=== PATIENT | male | born 1955 | race Caucasian/White ===

== ENCOUNTER 2016-10-01 14:02 | Emergency (ER) | payer OTHER ==
--- NOTE | 2016-10-01 17:00 | DIAGNOSTIC IMAGING REPORT ---
PROCEDURE: XR CHEST 2 VIEW INDICATION: CHEST PAIN TECHNIQUE: PA and lateral view. COMPARISON: None. FINDINGS: Mild bibasilar linear atelectasis versus scarring. Heart size, mediastinum and pulmonary vessels are normal. Tortuous aorta. Bony thorax is unremarkable. IMPRESSION: 1. Mild bibasilar linear atelectasis versus scarring
--- NOTE | 2016-10-01 17:23 | ED ORDER SUMMARY ---
..... Patient: MECHE MOORE OrderSheet [facility] VisitID: [id number] [place] [address] 60y, M Registration Date/Time: 10/01/2016 ORDER SHEET Weight: 93.8 kg (stated) Allergies: Penicillin, morphine GENERAL ORDERS: POC Glucose (15:15 10/01/2016 EKoroleva P.A.-C) (15:25 JSimbeck R.N.) Chest 2V Urgent (15:56 10/01/2016 EKoroleva P.A.-C) (Ack 16:09 Tayler) (16:30 MCampbell) Cardiac Panel Stat (15:56 10/01/2016 EKoroleva P.A.-C) (16:04 TLewis R.N.) PTT Urgent (15:56 10/01/2016 EKoroleva P.A.-C) (16:04 TLewis R.N.) PT with INR Urgent (15:56 10/01/2016 EKoroleva P.A.-C) (16:04 TLewis R.N.) EKG - ER Stat (15:56 10/01/2016 EKoroleva P.A.-C) (Ack 16:09 Tayler) (16:33 RMarsden R.N.) MEDICATION ORDERS: Regular Insulin Subcut 6 units (HIGH ALERT MEDICATION, NOW) (16:42 10/01/2016 EKoroleva P.A.-C) (17:17 JSimbeck R.N.) IV FLUIDS: IV Saline Lock (15:56 10/01/2016 EKoroleva P.A.-C) (Hold 16:02 JSimbeck R.N.) (16:04 TLewis R.N.) ORDER SHEET NOTES: [Electronically signed by Alfreda ChappellAFrancois-C (17:31 10/01/2016)] [Electronically signed by Tevni Serrano R.N. (17:36 10/01/2016)] [Electronically locked/signed by Tevin Serrano R.N. (17:36 10/01/2016)]
--- NOTE | 2016-10-01 17:23 | ED CLINICAL REPORT ---
Clinical Report - Physicians/Mid Levels [facility] [address], [place] [address] 10/01/2016 14:08 [id number] Time Seen: 15:05 Oct 01 2016. Arrived- By private vehicle. Historian- patient. HISTORY OF PRESENT ILLNESS Chief Complaint: no complaints, sent after VS with high BP at clinic. Is still present. No loss of appetite, weight loss, headache or visual disturbance. (patient has no complaints. Reports he has been taking his medications regularly. Long standing h/o htn. Reports h/o dm, reports did not take his insulin this am, has not checked his glucose. Does not have a glucometer.). REVIEW OF SYSTEMS No fever, sore throat, sinus drainage, cough or difficulty breathing. No nausea, diarrhea, chills or calf pain. All systems otherwise negative, except as recorded above. PAST HISTORY Problems: Adrenal and Pitituarity tumors. Depression. Hypertension. Diabetes Mellitus. Additional Surgeries: Adenoidectomy. Hernia Repair. Tonsillectomy. Medications: HumaLOG Subcutaneous. Lantus Subcutaneous. PROzac Oral. Kidney med. B/p med. Allergies: morphine. Penicillin. SOCIAL HISTORY Current every day light tobacco smoker. No alcohol use or drug use. LABS, X-RAYS, AND EKG EKG: EKG time: (1619). No acute process. No acute ischemia. Rate: 76. Normal P waves. Normal QT. non specific t abn, v1,i, avl, no acute changes, as reviwed with DR. Pabon. The study has been interpreted contemporaneously. The study has been independently viewed by me. The EKG appears to be a good tracing. Chest X-ray: (IMPRESSION: 1. Poor inspiration 2. Small right pleural effusion versus pleural thickening. Electronically Final signed by:Simon Torres MD 10/01/2016 1:49:57 PM). Laboratory Tests: CBC w Diff: (MIKAEL: 10/01/2016 16:05) ( MsgRcvd 10/01/2016 16:20) Final results Test Result Flag Units (Reference) WHITE BLOOD COUNT 5.8 K/uL (4.5-11.5) RED BLOOD COUNT 5.29 M/uL (4.50-5.90) HEMOGLOBIN 15.8 gm/dL (13.5-17.5) HEMATOCRIT 45.8 % (41.0-53.0) MEAN CELL VOLUME 87 fL (80-100) MEAN CORPUSCULAR HGB 30 pg (26-34) MEAN CORPUSCULAR HGB CONC 35 g/dL (31-37) RED CELL DISTRIBUTION WIDTH 14.1 % (11.6-14.8) PLATELET COUNT 212 K/uL (150-400) NEUTROPHIL % 61.3 % (50-75) LYMPH % 24.5 L % (25-40) MONO % 10.5 % (3-14) EOSINOPHIL % 3.0 % (0-4) BASOPHIL % 0.7 % (0-2) PT with INR: (MIKAEL: 10/01/2016 16:05) ( [facility] 16[place]26) Final results Test Result Flag Units (Reference) INR 0.9 (0.8-1.2) Low Intensity Therapy: INR 1.5-2.0 PT range 18.5-23.1Mod.Intensity Therapy: INR 2.0-3.0 PT range 23.1-31.5High Intensity Therapy: INR 2.5-3.5 PT range 27.4-35.5High Intensity Therapy 2: INR 3.0-4.0 PT range 31.5-39.3 APTT 29 SECONDS (24-34) CHEM 13 PANEL: (MIKAEL: 10/01/2016 16:05) ( MngRcvd 10/01/2016 16:40) IP Test Result Flag Units (Reference) SODIUM 136 mmol/L (136-145) POTASSIUM 4.7 mmol/L (3.5-5.1) CHLORIDE 100 mmol/L (98-107) CARBON DIOXIDE 24 mmol/L (21-32) TOTAL PROTEIN 7.2 g/dL (6.4-8.2) ALBUMIN 3.6 g/dL (3.3-5.0) CPK 69 U/L (24-260) TROPONIN I <0.05 L ng/mL (0.00-1.5) TROPONIN REFERENCE RANGE:<0.1 NEGATIVE0.1-1.5 INDETERMINANT>1.5 POSITIVE . PROGRESS AND PROCEDURES Course of Care: Given 6 units sc insulin rgular. NO distress. NO sx in the ER. Neg work up including cxr, trop, ekg. Pt stable. To f/u outpatient. He has no complaints. I did attempt to discuss with [facility], however he was only seen by nurse, he was sent over without a phone call or any records, he is new to us, the soap workup ensued, however no obvious signs of hypertensive urgency. ASX, no signs of end organ damage. 10/01/2016 16:55 BP: 146/92. HR: 75. RR: 16. O2 saturation: 95%. Pain level now: 0/10. 10/01/2016 16:25 BP: 158/92. HR: 75. RR: 16. O2 saturation: 95%. Pain level now: 0/10. Patient is stable. Physical exam findings are improved. Symptoms better. Patient/family counseled. Differential Diagnosis: I considered muscle strain, pleurisy, myocardial infarction, intermediate coronary syndrome, aortic dissection, pulmonary embolism, pneumonia and gastroesophageal reflux disease as a possible cause of chest pain in this patient. This is a partial list of diagnoses considered. Disposition: Discharged. CLINICAL IMPRESSION Poorly controlled type 2 diabetes. Uncontrolled hypertension. Uncontrolled hypertension. INSTRUCTIONS Prescription Medications: Glucometer Machine Dispense one. (Electronically signed by Alfreda Chappell P.A.-C 10/01/2016 17:31)
--- NOTE | 2016-10-01 17:23 | ED ORDER SUMMARY ---
..... Patient: MECHE MOORE OrderSheet [facility] VisitID: [id number] [place] [address] 60y, M Registration Date/Time: 10/01/2016 ORDER SHEET Weight: 93.8 kg (stated) Allergies: Penicillin, morphine GENERAL ORDERS: POC Glucose (15:15 10/01/2016 EKoroleva P.A.-C) (15:25 JSimbeck R.N.) Chest 2V Urgent (15:56 10/01/2016 EKoroleva P.A.-C) (Ack 16:09 Tayler) (16:30 MCampbell) Cardiac Panel Stat (15:56 10/01/2016 EKoroleva P.A.-C) (16:04 TLewis R.N.) PTT Urgent (15:56 10/01/2016 EKoroleva P.A.-C) (16:04 TLewis R.N.) PT with INR Urgent (15:56 10/01/2016 EKoroleva P.A.-C) (16:04 TLewis R.N.) EKG - ER Stat (15:56 10/01/2016 EKoroleva P.A.-C) (Ack 16:09 Tayler) (16:33 RMarsden R.N.) MEDICATION ORDERS: Regular Insulin Subcut 6 units (HIGH ALERT MEDICATION, NOW) (16:42 10/01/2016 EKoroleva P.A.-C) (17:17 JSimbeck R.N.) IV FLUIDS: IV Saline Lock (15:56 10/01/2016 EKoroleva P.A.-C) (Hold 16:02 JSimbeck R.N.) (16:04 TLewis R.N.) ORDER SHEET NOTES: [Electronically signed by Alfreda ChappellAFrancois-C (17:31 10/01/2016)] [Electronically signed by Tevin Serrano R.N. (17:36 10/01/2016)] [Electronically locked/signed by Tevin Serrano R.N. (17:36 10/01/2016)]
--- NOTE | 2016-10-01 17:23 | ED CLINICAL REPORT ---
Clinical Report - Physicians/Mid Levels [facility] [address], [place] [address] 10/01/2016 14:08 [id number] Time Seen: 15:05 Oct 01 2016. Arrived- By private vehicle. Historian- patient. HISTORY OF PRESENT ILLNESS Chief Complaint: no complaints, sent after VS with high BP at clinic. Is still present. No loss of appetite, weight loss, headache or visual disturbance. (patient has no complaints. Reports he has been taking his medications regularly. Long standing h/o htn. Reports h/o dm, reports did not take his insulin this am, has not checked his glucose. Does not have a glucometer.). REVIEW OF SYSTEMS No fever, sore throat, sinus drainage, cough or difficulty breathing. No nausea, diarrhea, chills or calf pain. All systems otherwise negative, except as recorded above. PAST HISTORY Problems: Adrenal and Pitituarity tumors. Depression. Hypertension. Diabetes Mellitus. Additional Surgeries: Adenoidectomy. Hernia Repair. Tonsillectomy. Medications: HumaLOG Subcutaneous. Lantus Subcutaneous. PROzac Oral. Kidney med. B/p med. Allergies: morphine. Penicillin. SOCIAL HISTORY Current every day light tobacco smoker. No alcohol use or drug use. LABS, X-RAYS, AND EKG EKG: EKG time: (1619). No acute process. No acute ischemia. Rate: 76. Normal P waves. Normal QT. non specific t abn, v1,i, avl, no acute changes, as reviwed with DR. Pabon. The study has been interpreted contemporaneously. The study has been independently viewed by me. The EKG appears to be a good tracing. Chest X-ray: (IMPRESSION: 1. Poor inspiration 2. Small right pleural effusion versus pleural thickening. Electronically Final signed by:Simon Torres MD 10/01/2016 1:49:57 PM). Laboratory Tests: CBC w Diff: (MIKAEL: 10/01/2016 16:05) ( MsgRcvd 10/01/2016 16:20) Final results Test Result Flag Units (Reference) WHITE BLOOD COUNT 5.8 K/uL (4.5-11.5) RED BLOOD COUNT 5.29 M/uL (4.50-5.90) HEMOGLOBIN 15.8 gm/dL (13.5-17.5) HEMATOCRIT 45.8 % (41.0-53.0) MEAN CELL VOLUME 87 fL (80-100) MEAN CORPUSCULAR HGB 30 pg (26-34) MEAN CORPUSCULAR HGB CONC 35 g/dL (31-37) RED CELL DISTRIBUTION WIDTH 14.1 % (11.6-14.8) PLATELET COUNT 212 K/uL (150-400) NEUTROPHIL % 61.3 % (50-75) LYMPH % 24.5 L % (25-40) MONO % 10.5 % (3-14) EOSINOPHIL % 3.0 % (0-4) BASOPHIL % 0.7 % (0-2) PT with INR: (MIKAEL: 10/01/2016 16:05) ( [facility] 10/01/2016 16:26) Final results Test Result Flag Units (Reference) INR 0.9 (0.8-1.2) Low Intensity Therapy: INR 1.5-2.0 PT range 18.5-23.1Mod.Intensity Therapy: INR 2.0-3.0 PT range 23.1-31.5High Intensity Therapy: INR 2.5-3.5 PT range 27.4-35.5High Intensity Therapy 2: INR 3.0-4.0 PT range 31.5-39.3 APTT 29 SECONDS (24-34) CHEM 13 PANEL: (MIKAEL: 10/01/2016 16:05) ( NegRcvd 10/01/2016 16:40) IP Test Result Flag Units (Reference) SODIUM 136 mmol/L (136-145) POTASSIUM 4.7 mmol/L (3.5-5.1) CHLORIDE 100 mmol/L (98-107) CARBON DIOXIDE 24 mmol/L (21-32) TOTAL PROTEIN 7.2 g/dL (6.4-8.2) ALBUMIN 3.6 g/dL (3.3-5.0) CPK 69 U/L (24-260) TROPONIN I <0.05 L ng/mL (0.00-1.5) TROPONIN REFERENCE RANGE:<0.1 NEGATIVE0.1-1.5 INDETERMINANT>1.5 POSITIVE . PROGRESS AND PROCEDURES Course of Care: Given 6 units sc insulin rgular. NO distress. NO sx in the ER. Neg work up including cxr, trop, ekg. Pt stable. To f/u outpatient. He has no complaints. I did attempt to discuss with [facility], however he was only seen by nurse, he was sent over without a phone call or any records, he is new to us, the soap workup ensued, however no obvious signs of hypertensive urgency. ASX, no signs of end organ damage. 10/01/2016 16:55 BP: 146/92. HR: 75. RR: 16. O2 saturation: 95%. Pain level now: 0/10. 10/01/2016 16:25 BP: 158/92. HR: 75. RR: 16. O2 saturation: 95%. Pain level now: 0/10. Patient is stable. Physical exam findings are improved. Symptoms better. Patient/family counseled. Differential Diagnosis: I considered muscle strain, pleurisy, myocardial infarction, intermediate coronary syndrome, aortic dissection, pulmonary embolism, pneumonia and gastroesophageal reflux disease as a possible cause of chest pain in this patient. This is a partial list of diagnoses considered. Disposition: Discharged. CLINICAL IMPRESSION Poorly controlled type 2 diabetes. Uncontrolled hypertension. Uncontrolled hypertension. INSTRUCTIONS Prescription Medications: Glucometer Machine Dispense one. (Electronically signed by Alfreda Chappell P.A.-C 10/01/2016 17:31)
--- NOTE | 2016-10-01 17:23 | ED NURSING NOTES ---
Clinical Report - Nurses [facility] [address] [place] [address] 10/01/2016 14:08 [id number] Triage time 14:20. Chief Complaint: (hypertension). 14:28 10/01/16. --14:28 Erma Carter R.N. 14:22 10/01/16. BP: 153/103. HR: 84. RR: 16. O2 saturation: 98%. Temp: 97.8 F. Pain level now: 0/10. --14:28 Erma Carter R.N. Acuity: LEVEL 3. 14:35 10/01/16. TENNILLE COMA SCORE: Kinsley Coma Scale: 15- eyes open spontaneously (4); best verbal response- oriented x 4 (5); best motor response- obeys commands (6). --14:35 Tevin Serrano R.N. Weight: 93.8 kg stated. Height/Length: 70 inches Per Patient. BMI: 29.7. --14:33 Tevin Serrano R.N. Medications PROzac Oral. --14:31 Tevin Serrano R.N. Lantus Subcutaneous (50 units QAM 30 units QPM). --14:31 Tevin Serrano R.N. HumaLOG Subcutaneous 12 units, TID. --14:31 Tevin Serrano R.N. Aldactone Oral 25 mg, 2x a day. --16:03 Tevin Serrano R.N. Atorvastatin Calcium Oral (Tablet 40 mg), daily. --16:03 Tevin Serrano R.N. Vitamin D (Cholecalciferol) Oral 50,000 units, 2 x/week. --16:04 Tevin Serrano R.N. Metoprolol Tartrate Oral (Tablet 50 mg) 1 tablet, BID. --16:08 Tevin Serrano R.N. Nitroglycerin Translingual 0.4mg, as needed. --16:09 Tevin Serrano R.N. PriLOSEC Oral (Capsule Delayed Release 40 mg) 1 capsule, daily. --16:09 Tevin Serrano R.N. Valproic Acid Oral (Capsule 250 mg) 1 capsule, 3x a day. --16:10 Tevin Serrano R.N. The following entry was struck and corrected by Tevin Serrano R.N., 16:08 (10/01/16) Reason for correction - other(correction). <<STRICKEN ENTRY-- Lantus Subcutaneous. --14:31 Tevin Serrano R.N. --END STRIKE>> The following entry was struck and corrected by Tevin Serrano R.N., 16:05 (10/01/16) Reason for correction - other(correction). <<STRICKEN ENTRY-- HumaLOG Subcutaneous. --14:31 Tevin Serrano R.N. --END STRIKE>> The following entry was struck by Tevin Serrano R.N., 16:03 (10/01/16) Reason - other. <<STRICKEN ENTRY-- Kidney med. --14:31 Tevin Serrano R.N. --END STRIKE>> The following entry was struck by Tevin Serrano R.N., 16:03 (10/01/16) Reason - other. [facility]-- B/p med. --14:31 Tevin Serrano R.N. --END STRIKE>>. Allergies Penicillin. --14:31 Tevin Serrano R.N. morphine. --14:32 Tevin Serrano R.N. History Arrived by private vehicle. Historian: patient. Primary physician referred the patient for evaluation (Dr Thompson). ( Patient reports he had an appointment for a blood pressure check with his PCP. PCP sent patient here for checkup.). --14:28 Erma Carter R.N. Primary physician (Markus @ [facility]). SOCIAL HX: Light tobacco smoker (cigarette)- less than 1/2 a pack per day. No alcohol use or drug use. ABUSE ASSESSMENT: No report of abuse. --14:35 Tevin Serrano R.N. PROBLEMS: Adrenal and Pitituarity tumors. Depression. Hypertension. Diabetes Mellitus. --14:33 Tevin Serrano R.N. ADDITIONAL SURGERIES: Adenoidectomy. Hernia Repair. Tonsillectomy. --14:33 Tevin Serrano R.N. Interventions ID band on patient. To treatment room. --14:35 Tevin Serrano R.N. PHYSICAL ASSESSMENT 14:36 10/01/16. Ambulatory to room. ( Pt only came to the ER because his PCP clinic said he needed to be evaluated in the ER.). GENERAL / NEURO / PSYCH: Alert. Oriented X 4. Appears in no acute distress. HEENT: Pupils equal, round and reactive to light. No facial asymmetry noted. Mucous membranes are pink. RESPIRATORY: Respirations not labored. Chest nontender. Breath sounds within normal limits. CVS: Capillary refill less than 2 seconds. Pulses within normal limits. GI / : Abdomen soft and nontender and normal bowel sounds. SKIN: Skin is warm and dry. Abnormal skin turgor. --14:37 Tevin Serrano R.N. NURSING PROGRESS NOTES 15:23 10/01/16. BP: 168/100 (regular adult cuff) taken on the left arm, while sitting. HR: 77. RR: 20. O2 saturation: 97% on room air. Pain level now: 0/10. Additional comments: by pulse ox. --15:25 Tevin Serrano R.N. 15:24 10/01/16. Glucose: 343. PA notifed of critical value. --15:25 Tevin Serrano R.N. late entry -15:24. ( Pt states that his glucometer is broken so he does not check his BG. States his last A1c was 14.). --15:30 Tevin Serrano R.N. 16:04 10/01/2016 Site #1 started via IV in the right forearm with an 20g angiocath, with aseptic technique and good blood return; one attempt. Blood drawn. Labeled in the presence of the patient and sent to the lab. Saline lock flushed with 10 mL saline. --16:04 Alton Tristan R.N. EKG time: (16:19). EKG was performed by a tech and shown to the ED physician and PA. --16:23 Kinsey Suarez 17:17 10/01/2016 Regular Insulin Subcutaneous 6 unit given. Given in the left abdomen. Allergies verified and confirmed 5 rights. --17:17 Tevin Serrano R.N. 16:55 10/01/16. BP: 146/92 (regular adult cuff) taken on the left arm, while lying. HR: 75. RR: 16. O2 saturation: 95% on room air. Pain level now: 0/10. --17:21 Tevin Serrano R.N. 16:25 10/01/16. BP: 158/92 (regular adult cuff) taken on the left arm, while lying. HR: 75. RR: 16. O2 saturation: 95% on room air. Pain level now: 0/10. --17:22 Tevin Serrano R.N. 15:55 10/01/16. BP: 159/101 (regular adult cuff) taken on the left arm, while lying. HR: 77. RR: 16. O2 saturation: 98% on room air. Pain level now: 0/10. --17:23 Tevin Serrano R.N. 17:30 10/01/2016 Regular Insulin Subcutaneous Response: no adverse reaction. --17:36 Tevin Serrano R.N. DISPOSITION / DISCHARGE 17:25 10/01/2016 Site #1 removed upon discharge. Bandage applied. --17:34 Tevin Serrano R.N. 17:34 10/01/16. Departure time: 1730. Condition at departure: improved and stable. No learning barriers present. Discharge instructions provided and reviewed with the patient. Reviewed warnings. Reviewed medication(s). Treatments reviewed. Patient verbalized understanding. Written instructions provided in Bulgarian. The patient was discharged by the physician junior assistant manager. He was discharged home. He left the Emergency Department ambulatory and via private vehicle. Parent driving. --17:35 Tevin Serrano R.N. 17:25 10/01/16. BP: 147/96 (regular adult cuff) taken on the left arm, while sitting. HR: 75. RR: 20. O2 saturation: 98% on room air. Temp: 98.3 F (oral). Pain level now: 0/10. --17:35 Tevin Serrano R.N. Locked/Released at 10/01/2016 17:36 by Tevin Serrano R.N.
--- NOTE | 2016-10-01 17:23 | ED NURSING NOTES ---
Clinical Report - [facility] [address] [place] [address] 10/01/2016 14:08 [id number] TRI[facility] Triage time 14:20. Chief Complaint: (hypertension). 14:28 10/01/16. --14:28 Erma Carter R.N. 14:22 10/01/16. BP: 153/103. HR: 84. RR: 16. O2 saturation: 98%. Temp: 97.8 F. Pain level now: 0/10. --14:28 Erma Carter R.N. Acuity: LEVEL 3. 14:35 10/01/16. [place] COMA SCORE: [place] Coma Scale: 15- eyes open spontaneously (4); best verbal response- oriented x 4 (5); best motor response- obeys commands (6). --14:35 Tevin Serrano R.N. Weight: 93.8 kg stated. Height/Length: 70 inches Per Patient. BMI: 29.7. --14:33 Tevin Serrano R.N. Medications PROzac Oral. --14:31 Tevin Serrano R.N. Lantus Subcutaneous (50 units QAM 30 units QPM). --14:31 Tevin Serrano R.N. HumaLOG Subcutaneous 12 units, TID. --14:31 Tevin Srerano R.N. Aldactone Oral 25 mg, 2x a day. --16:03 Tevin Serrano R.N. Atorvastatin Calcium Oral (Tablet 40 mg), daily. --16:03 Tevin Serrano R.N. Vitamin D (Cholecalciferol) Oral 50,000 units, 2 x/week. --16:04 Tevin Serrano R.N. Metoprolol Tartrate Oral (Tablet 50 mg) 1 tablet, BID. --16:08 Tevin Serrano R.N. Nitroglycerin Translingual 0.4mg, as needed. --16:09 Tevin Serrano R.N. PriLOSEC Oral (Capsule Delayed Release 40 mg) 1 capsule, daily. --16:09 Tevin Serrano R.N. Valproic Acid Oral (Capsule 250 mg) 1 capsule, 3x a day. --16:10 Tevin Serrano R.N. The following entry was struck and corrected by Tevin Serrano R.N., 16:08 (10/01/16) Reason for correction - other(correction). <<STRICKEN ENTRY-- Lantus Subcutaneous. --14:31 Tevin Serrano R.N. --END STRIKE>> The following entry was struck and corrected by Tevin Serrano R.N., 16:05 (10/01/16) Reason for correction - other(correction). <<STRICKEN ENTRY-- HumaLOG Subcutaneous. --14:31 Tevin Serrano R.N. --END STRIKE>> The following entry was struck by Tevin Serrano R.N., 16:03 (10/01/16) Reason - other. <<STRICKEN ENTRY-- Kidney med. --14:31 Tevin Serrano R.N. --END STRIKE>> The following entry was struck by Tevin Serrano R.N., 16:03 (10/01/16) Reason - other. [facility]. --14:31 Tevin Serrano R.N. --END STRIKE>>. Allergies Penicillin. --14:31 Tevin Serrano R.N. morphine. --14:32 Tevin Serrano R.N. History Arrived by private vehicle. Historian: patient. Primary physician referred the patient for evaluation (Dr Thompson). ( Patient reports he had an appointment for a blood pressure check with his PCP. PCP sent patient here for checkup.). --14:28 Erma Carter R.N. Primary physician (Markus @ [facility]). SOCIAL HX: Light tobacco smoker (cigarette)- less than 1/2 a pack per day. No alcohol use or drug use. ABUSE ASSESSMENT: No report of abuse. --14:35 Tevin Serrano R.N. PROBLEMS: Adrenal and Pitituarity tumors. Depression. Hypertension. Diabetes Mellitus. --14:33 Tevin Serrano R.N. ADDITIONAL SURGERIES: Adenoidectomy. Hernia Repair. Tonsillectomy. --14:33 Tevin Serrano R.N. Interventions ID band on patient. To treatment room. --14:35 Tevin Serrano R.N. PHYSICAL ASSESSMENT 14:36 10/01/16. Ambulatory to room. ( Pt only came to the ER because his PCP clinic said he needed to be evaluated in the ER.). GENERAL / NEURO / PSYCH: Alert. Oriented X 4. Appears in no acute distress. HEENT: Pupils equal, round and reactive to light. No facial asymmetry noted. Mucous membranes are pink. RESPIRATORY: Respirations not labored. Chest nontender. Breath sounds within normal limits. CVS: Capillary refill less than 2 seconds. Pulses within normal limits. GI / : Abdomen soft and nontender and normal bowel sounds. SKIN: Skin is warm and dry. Abnormal skin turgor. --14:37 Tevin Serrano R.N. NURSING PROGRESS NOTES 15:23 10/01/16. BP: 168/100 (regular adult cuff) taken on the left arm, while sitting. HR: 77. RR: 20. O2 saturation: 97% on room air. Pain level now: 0/10. Additional comments: by pulse ox. --15:25 Tevin Serrano R.N. 15:24 10/01/16. Glucose: 343. PA notifed of critical value. --15:25 Tevin Serrano R.N. late entry -15:24. ( Pt states that his glucometer is broken so he does not check his BG. States his last A1c was 14.). --15:30 Tevin Serrano R.N. 16:04 10/01/2016 Site #1 started via IV in the right forearm with an 20g angiocath, with aseptic technique and good blood return; one attempt. Blood drawn. Labeled in the presence of the patient and sent to the lab. Saline lock flushed with 10 mL saline. --16:04 Alton Tristan R.N. EKG time: (16:19). EKG was performed by a tech and shown to the ED physician and PA. --16:23 Kinsey Suarez 17:17 10/01/2016 Regular Insulin Subcutaneous 6 unit given. Given in the left abdomen. Allergies verified and confirmed 5 rights. --17:17 Tevin Serrano R.N. 16:55 10/01/16. BP: 146/92 (regular adult cuff) taken on the left arm, while lying. HR: 75. RR: 16. O2 saturation: 95% on room air. Pain level now: 0/10. --17:21 Tevin Serraon R.N. 16:25 10/01/16. BP: 158/92 (regular adult cuff) taken on the left arm, while lying. HR: 75. RR: 16. O2 saturation: 95% on room air. Pain level now: 0/10. --17:22 Tevin Serrano R.N. 15:55 10/01/16. BP: 159/101 (regular adult cuff) taken on the left arm, while lying. HR: 77. RR: 16. O2 saturation: 98% on room air. Pain level now: 0/10. --17:23 Tevin Serrano R.N. 17:30 10/01/2016 Regular Insulin Subcutaneous Response: no adverse reaction. --17:36 Tevin Serrano R.N. DISPOSITION / DISCHARGE 17:25 10/01/2016 Site #1 removed upon discharge. Bandage applied. --17:34 Tevin Serrano R.N. 17:34 10/01/16. Departure time: 1730. Condition at departure: improved and stable. No learning barriers present. Discharge instructions provided and reviewed with the patient. Reviewed warnings. Reviewed medication(s). Treatments reviewed. Patient verbalized understanding. Written instructions provided in Urdu. The patient was discharged by the physician orthodontic assistant. He was discharged home. He left the Emergency Department ambulatory and via private vehicle. Parent driving. --17:35 Tevin Serrano R.N. 17:25 10/01/16. BP: 147/96 (regular adult cuff) taken on the left arm, while sitting. HR: 75. RR: 20. O2 saturation: 98% on room air. Temp: 98.3 F (oral). Pain level now: 0/10. --17:35 Tevin Serrano R.N. Locked/Released at 10/01/2016 17:36 by Tevin Serrano R.N.
--- NOTE | 2016-10-01 17:37 | ED DISCHARGE INSTRUCTIONS ---
Patient: MECHE MOORE General Instructions Located Within [facility] VisitID: [id number] [place] [address] 60y, M Registration Date/Time: 10/01/2016 Poorly controlled type 2 diabetes. Uncontrolled hypertension. Uncontrolled hypertension. INSTRUCTIONS Prescription Medications: Glucometer Machine Dispense one. ADDITIONAL INFORMATION High Blood Pressure --Established High Blood Pressure (Hypertension) is a chronic disease. The cause is unknown in most cases. It can usually be controlled with lifestyle changes and/or medicines. Symptoms of high blood pressure may include headache, dizziness, visual changes, chest pain and shortness of breath. Sometimes it causes no symptoms at all. However, even if there are no symptoms, untreated high blood pressure increases the risk of heart attack, also known as acute myocardial infarction, or AMI, and stroke. It is a serious health risk and should not be ignored. A normal blood pressure is 120/80 or less. The first (top) number is the "systolic" pressure. The second (bottom) number is the "diastolic" pressure. Hypertension exists when either the top number is 140 or higher, OR the bottom number is 90 or higher on repeated measurements. Home Care: All patients with high blood pressure should do the following to lower their pressure. If you are on medicines, then these methods may reduce or eliminate your need for medicines in the future. Begin a weight loss program if you are overweight. Reduce your salt intake. Avoid high salt foods (olives, pickles, smoked meats, salted potato chips, etc.). Do not add salt to your food at the table. Use only small amounts of salt when cooking. Begin an exercise program. Discuss with your doctor what type of exercise program would be best for you. It doesn't have to be difficult. Even brisk walking for 20 minutes three times a week is a good form of exercise. Avoid medicines which contain heart stimulants. This includes many cold and sinus decongestant pills and sprays as well as diet pills. Check the warnings about hypertension on the label. Stimulants such as amphetamine or cocaine could be lethal for someone with hypertension. Never take these. Limit your caffeine intake or switch to caffeine-free products. Stop smoking. If you are a long-time smoker, this can be hard. Enroll in a stop-smoking program to improve your chance of success. Learning how to handle stress better is an important part of any program to lower blood pressure. Learn about relaxation methods such as meditation, yoga or biofeedback. If medicines were prescribed, take them exactly as directed. Missing doses may cause your blood pressure get out of control. Consider buying an automatic blood pressure machine (available at most pharmacies). Use this to monitor your blood pressure at home and report the results to your doctor. Follow Up: Regular visits to your own physician for blood pressure checks and medicine adjustment is an important part of your care. Make a follow-up appointment as directed by our staff. Get Prompt Medical Attention if any of the following occur: Chest pain or shortness of breath Severe headache Throbbing or rushing sound in the ears Nosebleed Sudden severe abdominal pain Extreme drowsiness, confusion or fainting Dizziness or vertigo (dizziness with spinning sensation) Weakness of an arm or leg or one side of the face Difficulty with speech or vision High Blood Pressure --Established High Blood Pressure (Hypertension) is a chronic disease. The cause is unknown in most cases. It can usually be controlled with lifestyle changes and/or medicines. Symptoms of high blood pressure may include headache, dizziness, visual changes, chest pain and shortness of breath. Sometimes it causes no symptoms at all. However, even if there are no symptoms, untreated high blood pressure increases the risk of heart attack, also known as acute myocardial infarction, or AMI, and stroke. It is a serious health risk and should not be ignored. A normal blood pressure is 120/80 or less. The first (top) number is the "systolic" pressure. The second (bottom) number is the "diastolic" pressure. Hypertension exists when either the top number is 140 or higher, OR the bottom number is 90 or higher on repeated measurements. Home Care: All patients with high blood pressure should do the following to lower their pressure. If you are on medicines, then these methods may reduce or eliminate your need for medicines in the future. Begin a weight loss program if you are overweight. Reduce your salt intake. Avoid high salt foods (olives, pickles, smoked meats, salted potato chips, etc.). Do not add salt to your food at the table. Use only small amounts of salt when cooking. Begin an exercise program. Discuss with your doctor what type of exercise program would be best for you. It doesn't have to be difficult. Even brisk walking for 20 minutes three times a week is a good form of exercise. Avoid medicines which contain heart stimulants. This includes many cold and sinus decongestant pills and sprays as well as diet pills. Check the warnings about hypertension on the label. Stimulants such as amphetamine or cocaine could be lethal for someone with hypertension. Never take these. Limit your caffeine intake or switch to caffeine-free products. Stop smoking. If you are a long-time smoker, this can be hard. Enroll in a stop-smoking program to improve your chance of success. Learning how to handle stress better is an important part of any program to lower blood pressure. Learn about relaxation methods such as meditation, yoga or biofeedback. If medicines were prescribed, take them exactly as directed. Missing doses may cause your blood pressure get out of control. Consider buying an automatic blood pressure machine (available at most pharmacies). Use this to monitor your blood pressure at home and report the results to your doctor. Follow Up: Regular visits to your own physician for blood pressure checks and medicine adjustment is an important part of your care. Make a follow-up appointment as directed by our staff. Get Prompt Medical Attention if any of the following occur: Chest pain or shortness of breath Severe headache Throbbing or rushing sound in the ears Nosebleed Sudden severe abdominal pain Extreme drowsiness, confusion or fainting Dizziness or vertigo (dizziness with spinning sensation) Weakness of an arm or leg or one side of the face Difficulty with speech or vision Hypertension, Out Of Control (Established) Your blood pressure was unusually high today. This can occur as a result of missing doses of your blood pressure medicine. Some asthma inhalers, decongestants, diet pills, and street drugs such as cocaine and amphetamine can worsen hypertension. An increase in body weight, increase in salt intake, smoking, and caffeine are other causes. Emotional upset or acute pain can cause a sudden rapid rise in blood pressure which may return to normal after a period of rest. A normal blood pressure is less than 140/90. The first (top) number is the systolic pressure. The second (bottom) number is the diastolic pressure. Hypertension exists when either the top number is 140 or higher, OR the bottom number is 90 or higher on repeated measurements. Home Care: All patients with high blood pressure should do the following to lower their pressure. If you are on blood pressure medicines, then these methods may reduce or eliminate your need for medicines in the future. Begin a weight-loss program if you are overweight. Reduce your salt intake. Avoid high-salt foods (olives, pickles, smoked meats, salted potato chips, etc.). Do not add salt to your food at the table. Use only small amounts of salt when cooking. Begin an exercise program. Discuss with your doctor what type of exercise program would be best for you. It doesnt have to be difficult. Even brisk walking for 20 minutes3 times a week is a good form of exercise. Avoid medicines which contain heart stimulants. This includes many cold and sinus decongestant pills and sprays as well as diet pills. Check the warnings about hypertension on the label. Stimulants such as amphetamine or cocaine could be lethal for someone with hypertension. Never take these. Limit your caffeine intake or switch to decaf. Stop smoking. If you are a long-time smoker, this can be hard. Enroll in a stop-smoking program to improve your chance of success. Talk to your physician about ways to improve your chance of success. Learning how to handle stress better is an important part of any program to lower blood pressure. Learn about relaxation methods such as meditation, yoga, or biofeedback. If medicines were prescribed, take them exactly as directed. Missing doses may cause your blood pressure to get out of control. Consider buying an automatic blood pressure machine (available at many pharmacies). Use this to monitor your blood pressure and report to your doctor. Follow Up: Regular visits to your own doctor for blood pressure checks and medicine adjustment is an important part of your care. Make a follow-up appointment as directed by our staff. Get Prompt Medical Attention if any of the following occur: Chest, arm, shoulder, neck, or upper back pain Shortness of breath Severe headache Throbbing or rushing sound in the ears Nosebleed Extreme drowsiness, confusion, or fainting Dizziness or vertigo (dizziness with spinning sensation) Weakness of an arm or leg or one side of the face Difficulty with speech or vision You have been given the following additional information: Hypertension, Established Hypertension, Established Hypertension, Established, Out Of Control (Electronically signed by Alfreda Chappell P.A.-C 10/01/2016 17:31)
--- NOTE | 2016-10-01 17:37 | ED MAR SUMMARY ---
..... Medication Administration Record [facility] [address] [place] [address] Patient: MECHE MOORE Visit ID: [id number] 60y, M Weight: 93.8 kg Height/Length: 70 in BMI: 29.7 ALLERGIES: morphine, Penicillin Given 17:17 10/01/2016 Tevin Serrano R.N. Medication Administered: REGULAR INSULIN [SUBCUTANEOUS], Dose: 6 unit Subcutaneous. Medication Ordered: Regular Insulin Subcut 6 units (HIGH ALERT MEDICATION, NOW).
--- NOTE | 2016-10-01 17:37 | ED MED RECONCILIATION SUMMARY ---
Patient: MECHE MOORE Medication Reconciliation Report [facility] VisitID: [id number] [address] [place] [address] 60y, M Registration Date/Time: 10/01/2016 Weight: 93.8 kg Height/Length: 70 in. BMI: 29.7 ALLERGIES: morphine, Penicillin The patient's Home Medications are listed below: THE FOLLOWING MEDICATIONS NEED TO BE RECONCILED: Aldactone Oral 25 mg, 2x a day Atorvastatin Calcium Oral (40 mg), daily HumaLOG Subcutaneous 12 units, TID Lantus Subcutaneous, 50 units QAM30 units QPM Metoprolol Tartrate Oral (50 mg) 1 tablet, BID Nitroglycerin Translingual 0.4mg PriLOSEC Oral (40 mg) 1 capsule, daily PROzac Oral Valproic Acid Oral (250 mg) 1 capsule, 3x a day Vitamin D (Cholecalciferol) Oral 50,000 units, 2 x/week The source(s) of the original Home Medication information: Not obtained. The following Medications were given to the patient in the Emergency Department: Regular Insulin [Subcutaneous] Subcutaneous 6 unit, administered: 10/01/2016 5:17:00 PM The following Medications were prescribed to the patient: Glucometer Machine Dispense one. -- Alfreda Chappell P.A.-C
--- NOTE | 2016-10-01 17:37 | ED MED RECONCILIATION SUMMARY ---
Patient: MECHE MOORE Medication Reconciliation Report [facility] VisitID: [id number] [address] [place] [address] 60y, M Registration Date/Time: 10/01/2016 Weight: 93.8 kg Height/Length: 70 in. BMI: 29.7 ALLERGIES: morphine, Penicillin The patient's Home Medications are listed below: THE FOLLOWING MEDICATIONS NEED TO BE RECONCILED: Aldactone Oral 25 mg, 2x a day Atorvastatin Calcium Oral (40 mg), daily HumaLOG Subcutaneous 12 units, TID Lantus Subcutaneous, 50 units QAM30 units QPM Metoprolol Tartrate Oral (50 mg) 1 tablet, BID Nitroglycerin Translingual 0.4mg PriLOSEC Oral (40 mg) 1 capsule, daily PROzac Oral Valproic Acid Oral (250 mg) 1 capsule, 3x a day Vitamin D (Cholecalciferol) Oral 50,000 units, 2 x/week The source(s) of the original Home Medication information: Not obtained. The following Medications were given to the patient in the Emergency Department: Regular Insulin [Subcutaneous] Subcutaneous 6 unit, administered: 10/01/2016 5:17:00 PM The following Medications were prescribed to the patient: Glucometer Machine Dispense one. -- Alfreda Chappell P.A.-C
--- NOTE | 2016-10-01 17:37 | ED MAR SUMMARY ---
..... Medication Administration Record [facility] [address] [place] [address] Patient: MECHE MOORE Visit ID: [id number] 60y, M Weight: 93.8 kg Height/Length: 70 in BMI: 29.7 ALLERGIES: morphine, Penicillin Given 17:17 10/01/2016 Tevin Serrano R.N. Medication Administered: REGULAR INSULIN [SUBCUTANEOUS], Dose: 6 unit Subcutaneous. Medication Ordered: Regular Insulin Subcut 6 units (HIGH ALERT MEDICATION, NOW).
== END 2016-10-01 17:30 | disposition home or self-care (01) ==
LOC: ED SRH 14:02
DX: I10 Essential (primary) hypertension (principal); E11.9 Type 2 diabetes mellitus without complications; F17.219 Nicotine dependence, cigarettes, with unspecified nicotine-induced disorders; Z79.899 Other long term (current) drug therapy; Z79.4 Long term (current) use of insulin; Z88.5 Allergy status to narcotic agent; Z88.0 Allergy status to penicillin
CPT/HCPCS: 90098; 90100; 90616; 92610; 92720; 94001; 94060; 95059